=== PATIENT | female | born 1980 | race Caucasian/White ===

== ENCOUNTER 2023-02-24 13:57 | Outpatient (CLI) | payer MEDICAID ==
--- NOTE | 2023-02-24 14:38 | XRAY Report ---
PROCEDURE: Shoulder 3 View LT INDICATIONS: PAIN IN LEFT SHOULDER TECHNIQUE: 3 views of the shoulder were acquired. COMPARISON: None. FINDINGS: Bones: No fractures or dislocations. No suspicious bony lesions. Visualized ribs appear intact. Mild acromioclavicular narrowing. Soft tissues: No suspicious soft tissue calcifications. IMPRESSION: Mild acromioclavicular narrowing. Reviewed by: Bria Cabral MD on 02/24/2023 2:37 PM PDT Approved by: Bria Cabral MD on 02/24/2023 2:37 PM PDT Station ID: [id number]
== END 2023-02-24 13:58 | disposition home or self-care (01) ==
LOC: DI 13:57
PROVIDERS: ATTEND Registered Nurse
DX: M25.512 Pain in left shoulder (principal)

== ENCOUNTER 2023-03-14 13:43 | Outpatient (CLI) | payer MEDICAID ==
--- NOTE | 2023-03-14 16:04 | MRI Report ---
PROCEDURE: SHOULDER WO - LT INDICATIONS: LEFT SHOULDER SPRAIN TECHNIQUE: Noncontrast oblique coronal T2 fast spin echo with fat saturation, oblique sagittal T1 spin echo and T2 fast spin echo with fat saturation, axial T1 spin echo and T2 fast spin echo with fat saturation t hrough the shoulder. COMPARISON: Shoulder radiograph dated 02/24/2023. FINDINGS: Image quality: Excellent. Rotator cuff: Low-grade articular and bursal surface partial-thickness tear involving distal supraspi natus at its insertion on humeral head is seen extending to musculotendinous junction. Low-grade shazia cular surface partial-thickness tear involving distal infraspinatus is also seen. Distal subscapulari s tendon is intact. No full-thickness rotator cuff tendon rupture. No rotator cuff muscle atrophy on sagittal images. Bones and bursae: No bone marrow contusions or fractures. Nonspecific subcortical cystic changes are seen in posterior lateral humeral head. Mild acromioclavicular joint osteoarthritic changes are seen with joint space narrowing and small downward osteophyte formation depressing on musculotendinous ju nction of supraspinatus. The acromion demonstrates conventional anatomy, without an os acromiale. Sma ll amount of subacromial subdeltoid bursal fluid is present. Capsule and soft tissues: There is subtle signal abnormality and contour irregularity involving super ior anterior labrum at 12 to 1:00 position suggestive of subtle superior anterior labral tear. Subtle signal abnormality involving inferior labrum at 5 to 6:00 position is also seen. The long head of th e biceps tendon demonstrates normal location and morphology. The rotator interval appears normal, wi thout fibrosis. The coracohumeral ligament is normal in thickness. IMPRESSION: 1. Low-grade articular and bursal surface partial-thickness tear involving distal supraspinatus exten ding to musculotendinous junction. Low-grade articular surface partial-thickness tear involving dista l infraspinatus. Distal subscapularis tendon is intact. No full-thickness rotator cuff tendon rupture . 2. Very mild acromioclavicular joint osteoarthritis. No marrow edema. No fracture or dislocation. Sma ll amount of subacromial subdeltoid bursal fluid. 3. Suggestion of subtle superior anterior labral tear at 12 to 1:00 position and anterior inferior la bral tear at 5 to 6:00 position. Reviewed by: Bhanu Carbajal MD on 03/14/2023 4:02 PM PDT Approved by: Bhanu Carbajal MD on 03/14/2023 4:02 PM PDT Station ID: [id number]
== END 2023-03-14 13:44 | disposition home or self-care (01) ==
LOC: DI 13:43
PROVIDERS: ATTEND Family Medicine
DX: M75.112 Incomplete rotator cuff tear or rupture of left shoulder, not specified as traumatic (principal); M19.012 Primary osteoarthritis, left shoulder

== ENCOUNTER 2023-03-26 08:00 | Outpatient (CLI) | payer OTHER, MEDICAID ==
--- NOTE | 2023-03-26 11:26 | XRAY Report ---
PROCEDURE: Shoulder 2 View LT INDICATIONS: LEFT SHOULDER PAIN TECHNIQUE: 2 views of the shoulder were acquired. COMPARISON: MRI 03/14/2023 FINDINGS: Bones: No displaced fracture. No dislocation. Mild acromioclavicular joint space narrowing. Soft tissues: No suspicious calcifications. IMPRESSION: Mild acromioclavicular joint space narrowing. No acute fracture or dislocation. Soft tissue findings were better assessed on recent prior MRI. Reviewed by: Fer Barnett MD on 03/26/2023 11:24 AM PDT Approved by: Fer Barnett MD on 03/26/2023 11:24 AM PDT Station ID: [id number]
== END 2023-03-26 23:59 | disposition home or self-care (01) ==
LOC: DI.WOS 08:00
PROVIDERS: ATTEND Orthopaedic Surgery
DX: S43.492D Other sprain of left shoulder joint, subsequent encounter (principal); M19.012 Primary osteoarthritis, left shoulder

== ENCOUNTER 2023-06-21 13:00 | Outpatient (CLI) | payer MEDICAID | END 2023-06-21 13:15 | disposition home or self-care (01) | LOC: LAB.N 13:00 | PROVIDERS: ATTEND Registered Nurse | DX: R39.15 Urgency of urination (principal); R10.9 Unspecified abdominal pain; R30.0 Dysuria | CPT/HCPCS: 87086 ==

== ENCOUNTER 2023-08-06 08:06 | Outpatient (CLI) | payer MEDICAID ==
[2023-08-06 12:22] LABS: BASOPHILS % (AUTO) 0.3 %; EOSINOPHILS # (AUTO) 0.1 10^3/uL (0.0-0.7); HCT - HEMATOCRIT 39.9 % (37.0-47.0); HGB - HEMOGLOBIN 13.2 g/dL (12.0-16.0); LYMPHOCYTES # (AUTO) 2.1 10^3/uL (1.5-3.5); LYMPHOCYTES % (AUTO) 35.3 %; MEAN CORPUSCULAR HEMOGLOBIN 28.7 pg (27.0-31.0); MEAN CORPUSCULAR HGB CONC 33.1 g/dL (32.0-36.0); MEAN CORPUSCULAR VOLUME 86.7 fL (81.0-99.0); MEAN PLATELET VOLUME 10.4 fL (7.9-10.8); MONOCYTES # (AUTO) 0.3 10^3/uL (0.0-1.0); MONOCYTES % (AUTO) 5.5 %; NEUTROPHILS # (AUTO) 3.4 10^3/uL (1.5-6.6); NEUTROPHILS % (AUTO) 56.7 %; PLT - PLATELET COUNT 356 10^3/uL (130-450); RED CELL DISTRIBUTION WIDTH 11.8 % (12.0-15.0)
[2023-08-06 13:27] LABS: ALBUMIN 3.9 g/dL (3.2-5.5); ALBUMIN/GLOBULIN RATIO 1.7 (1.0-2.2); ALKALINE PHOSPHATASE 41 IU/L (42-121); ALT ALANINE AMINOTRANSFERASE 20 IU/L (10-60); AST ASPARTATE AMINOTRANSFERASE 13 IU/L (10-42); BILIRUBIN,TOTAL 0.4 mg/dL (0.2-1.0); BUN - BLOOD UREA NITROGEN 9 mg/dL (6-20); CALCIUM 8.9 mg/dL (8.5-10.3); CARBON DIOXIDE - CO2 27 mmol/L (21-32); CHLORIDE 104 mmol/L (101-111); CHOLESTEROL 147 mg/dL; CREATININE 0.6 mg/dL (0.6-1.3); GFR - MDRD 110 (>89); GLUCOSE 175 mg/dL (74-104); HDL CHOLESTEROL 49 mg/dL; LDL CHOLESTEROL,CALCULATED 63 mg/dL; LDL/HDL RATIO 1.3 (<4.4); POTASSIUM 3.8 mmol/L (3.5-4.5); SODIUM 137 mmol/L (135-145); TOTAL PROTEIN 6.2 g/dL (6.4-8.9); TRIGLYCERIDES 176 mg/dL (48-352); VLDL CHOLESTEROL 35 mg/dL
[2023-08-06 13:35] LABS: ESTIMATED AVERAGE GLUCOSE 163 mg/dL (70-100); HEMOGLOBIN A1c% 7.3 % (4.27-6.07)
[2023-08-06 13:39] LABS: THYROID STIMULATING HORMONE 2.29 uIU/mL (0.34-5.60)
[2023-08-06 13:42] LABS: CREATININE,URINE 174.1 mg/dL; MICROALBUM/CREATININE RATIO,UR 11.5 ug/mg (<30.0)
== END 2023-08-06 08:07 | disposition home or self-care (01) ==
LOC: LAB.N 08:06
PROVIDERS: ATTEND Physician Assistant
DX: E11.319 Type 2 diabetes mellitus with unspecified diabetic retinopathy without macular edema (principal); E03.9 Hypothyroidism, unspecified
CPT/HCPCS: 36415; 80050; 80061; 82043; 82570; 83036; 83721; 84439

== ENCOUNTER 2024-02-08 07:27 | Outpatient (CLI) | payer MEDICAID ==
[2024-02-08 12:34] LABS: ESTIMATED AVERAGE GLUCOSE 174 mg/dL (70-100); HEMOGLOBIN A1c% 7.7 % (4.27-6.07)
[2024-02-08 12:54] LABS: CALCIUM 9.2 mg/dL (8.5-10.3); CREATININE 0.6 mg/dL (0.6-1.3); POTASSIUM 4.1 mmol/L (3.5-4.5)
== END 2024-02-08 07:28 | disposition home or self-care (01) ==
LOC: LAB.N 07:27
PROVIDERS: ATTEND Physician Assistant
DX: E11.319 Type 2 diabetes mellitus with unspecified diabetic retinopathy without macular edema (principal)
CPT/HCPCS: 36415; 80048; 83036

== ENCOUNTER 2024-02-13 07:45 | Outpatient (CLI) | payer MEDICAID ==
--- NOTE | 2024-02-14 09:33 | Ultrasound Report ---
LIMITED ULTRASOUND OF RIGHT BREAST: 02/13/2024 CLINICAL: Focal right breast pain. Comparison is made to exam dated: 02/13/2024 mammogram - [facility]. Continuous wave Doppler ultrasound of the right breast retroareolar was performed on the area of inte rest. IMPRESSION: NEGATIVE There is no mammographic or sonographic abnormality seen in the right breast to correspond with the a julio of clinical concern, however, in the setting of nipple skin changes, surgical consultation is rec ommended as Paget's disease of the breast cannot be excluded by imaging. This exam was interpreted at Station ID: [id number]. Electronically Signed By: Lillian Mathias M.D. lk/:02/13/2024 09:46:04 Ultrasound BI-RADS: 1 Negative BI-RADS CATEGORY: (1) - 1 Unspecified - other [id number] Immediate follow-up LATERALITY: (B)
--- NOTE | 2024-02-14 09:33 | Mammography Report ---
BILATERAL DIGITAL DIAGNOSTIC MAMMOGRAM 3D/2D WITH EXAGGERATED CC LATEROMEDIAL SPOT COMPRESSION: 2023 CLINICAL: Baseline exam. Focal right breast pain. No prior exams were available for comparison. There are scattered areas of fibroglandular density in both breasts (category b / 25%-50% glandular t issue). No significant masses, calcifications, or other findings are seen in either breast. IMPRESSION: INCOMPLETE: NEEDS ADDITIONAL IMAGING EVALUATION There is no mammographic abnormality seen in the right breast to correspond with the area of clinical concern, however, targeted ultrasound of the right breast is recommended and will be performed imme diately following this exam. Based on the Tyrer Cuzick model (a risk assessment model) the patient's lifetime risk is 8.7% and her 10 year risk is 1.2%. According to the ACR, ACS, and NCCN guidelines, an annual breast MRI exam columb[place] g with mammogram is recommended if the patient's lifetime risk is 20% or greater. This exam was interpreted at Station ID: [id number]. NOTE: For mammograms, a report in lay terms will be sent to the patient. Approximately 15% of breast malignancies will not be visualized mammographically. In the management of a palpable breast mass, a negative mammogram must not discourage biopsy of a clinically suspicious lesion. Electronically Signed By: Lillian Mathias M.D. lk/:02/13/2024 10:07:40 ACR BI-RADS Category 0: Incomplete 3340F PARENCHYMAL PATTERN: (A) - The breast(s) demonstrate(s) scattered fibroglandular densities. BI-RADS CATEGORY: (0) - 0 Ultrasound [id number] Immediate follow-up LATERALITY: (B)
== END 2024-02-13 07:46 | disposition home or self-care (01) ==
LOC: DI 07:45
PROVIDERS: ATTEND Physician Assistant
DX: N64.4 Mastodynia (principal); N64.9 Disorder of breast, unspecified; R92.323 Mammographic fibroglandular density, bilateral breasts

== ENCOUNTER 2024-03-10 18:12 | Emergency (ER) | payer MEDICAID ==
--- NOTE | 2024-03-10 18:20 | ED Physician Documentation ---
PD HPI FOCAL NEURO - Stated complaint Stated Complaint: RT FACIAL DROOP, LEFT SIDE WEAKNESS, APHASIA - Chief complaint Chief Complaint: Neuro - History obtained from History obtained from: Patient, EMS - Additional information Additional information: 43-year-old female, history of diabetes and migraines, states that she had a stroke 2 years ago in [place]. She states that she was told it was due to Imitrex. She developed a headache today around 2 PM. At around 1710, she developed difficulty speaking, left-sided weakness and right-sided facial droop. She went to the walk-in clinic in [place], no nonnormal was called and she was brought here. Arrived around 1814. She is able to speak upon arrival here, is able to move her left side and has a decreasing right facial droop upon arriv al. Review of Systems Constitutional: denies: Fever, Chills Respiratory: denies: Cough : denies: Now EGA Skin: denies: Rash PD PAST MEDICAL HISTORY - Past Medical History Past Medical History: Yes Neuro: CVA, Migraines - Present Medications Home Medications: Ambulatory Orders Medication Instructions Recorded Confirmed Acyclovir 400 mg PO DAILY 03/10/24 03/10/24 Atorvastatin Calcium 40 mg PO DAILY 03/10/24 03/10/24 Brimonidine 0.15% Ophth Drops 1 drops OPTH DAILY 03/10/24 03/10/24 [Alphagan P 0.15% Ophth Drops] Budesonide/Formoterol Fumarate 2 puffs INH BID 03/10/24 03/10/24 [Symbicort 160-4.5 Mcg Inhaler] Gabapentin [Neurontin] 300 mg PO TID 03/10/24 03/10/24 Insulin Glargine,Hum.rec.anlog 16 unit SUBQ DAILY 03/10/24 03/10/24 [Basaglar Kwikpen U-100] Ketorolac [Toradol] 10 mg PO Q6H PRN #20 tablet 03/10/24 LORazepam [Ativan] 0.5 mg PO Q6H 03/10/24 03/10/24 Levothyroxine [Synthroid] 100 mcg PO QDAC 03/10/24 03/10/24 Liraglutide [Victoza 2-Ron] 1.2 mg SQ DAILY 03/10/24 03/10/24 Lisinopril [Zestril] 40 mg PO DAILY 03/10/24 03/10/24 Metoclopramide [Reglan] 10 mg PO Q6H PRN #20 tablet 03/10/24 Metoprolol Tartrate [Lopressor] 25 mg PO BID 03/10/24 03/10/24 Ondansetron Odt [Zofran Odt] 4 mg TL Q6H PRN 03/10/24 03/10/24 Prazosin [Minipress] 5 mg PO QPM 03/10/24 03/10/24 Trazodone HCl 100 mg PO DAILY PM 03/10/24 03/10/24 hydroCHLOROthiazide [Hydrodiuril] 12.5 mg PO DAILY 03/10/24 03/10/24 lamoTRIgine [Lamictal] 150 mg PO BID 03/10/24 03/10/24 - Allergies Allergies/Adverse Reactions: Allergies Allergy/AdvReac Type Severity Reaction Status Date / Time adhesive tape Allergy Anxiety Verified 03/10/24 18:47 hydrocodone Allergy Hives Verified 03/10/24 18:45 NSAIDS (Non-Steroidal Allergy Anxiety Verified 03/10/24 18:47 Anti-Inflamma oxycodone Allergy Anaphylaxis Verified 03/10/24 18:45 sumatriptan Allergy Anxiety Verified 03/10/24 18:46 topiramate [From Topamax] Allergy Hives Verified 03/10/24 18:46 - Living Situation Living Situation: reports: With family Living Arrangement: reports: At home - Family History Family history: reports: Non contributory PD ED PE NORMAL - Vitals Vital signs reviewed: Yes - General General: Alert and oriented X 3, No acute distress, Well developed/nourished - HEENT HEENT: PERRL, Ears normal, Moist mucous membranes, Pharynx benign - Neck Neck: Supple, no meningeal sign - Cardiac Cardiac: RRR, Strong equal pulses - Respiratory Respiratory: No respiratory distress, Clear bilaterally - Abdomen Abdomen: Soft, Non tender, Non distended - Derm Derm: Warm and dry - Extremities Extremities: No edema, No calf tenderness / cord - Neuro Neuro: Alert and oriented X 3, 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 (patient is blind at baseline), No sensory deficit, Normal speech, Other (mild R facial droop and L sided weakness of arm and leg.) Eye Opening: Spontaneous Motor: Obeys Commands Verbal: Oriented GCS Score: 15 - Psych Psych: Normal mood, Normal affect NIHSS - Time Time: 18:15 - Level of Consciousness Level of consciousness: (0) Alert, Keenly responsive LOC Questions: (0) Answers both Q's correct LOC Commands: (0) Performs both correctly - Gaze Best Gaze: (0) Normal - Visual Visual: (0) No loss - Facial Palsy Facial Palsy: (1) Minor paralysis - Motor Arms (both separate) Motor Arm (right): (0) No drift Motor Arm (left): (0) No drift - Motor Legs (both separate) Motor Leg (right): (0) No drift Motor Leg (left): (1) Drift - Limb Ataxia Limb Ataxia: (0) Absent - Sensory Sensory: (0) Normal - Best Language Best Language: (1) [id number] - Dysarthria Dysarthria: (0) Normal - Extinction and Inattention (formally neg Extinction and inattention: (0) No abnormality - Total Score/Results Total Score/Result: 3 Results - Vitals Vitals: Vital Signs - 24 hr 03/10/24 03/10/24 03/10/24 18:35 18:44 19:44 Temperature 36.6 C 36.8 C Heart Rate 54 L 55 L 65 Respiratory 14 18 13 Rate Blood Pressure 169/107 H 157/84 H 138/73 H O2 Saturation 96 93 96 03/10/24 20:00 Temperature 36.6 C Heart Rate 66 Respiratory 12 Rate Blood Pressure 138/72 H O2 Saturation 96 Oxygen O2 Source Room air - EKG (time done) 1841 EKG releavant findings:: EKG personally interpreted by author of this note. Relevant findings are: Rate: Rate (enter#) (54) Rhythm: NSR [place]: Normal Intervals: Normal UT QRS: Normal Ischemia: Normal ST segments - Labs Labs: Laboratory Tests 03/10/24 03/10/24 03/10/24 18:15 18:15 18:15 WBC 7.7 RBC 4.66 Hgb 13.1 Hct 39.5 MCV 84.8 MCH 28.1 MCHC 33.2 RDW 12.1 Plt Count 345 MPV 9.9 Neut # (Auto) 4.4 Lymph # (Auto) 2.8 [place] # (Auto) 0.5 Eos # (Auto) 0.1 Baso # (Auto) 0.0 Absolute Nucleated RBC 0.00 Nucleated RBC % 0.0 PT 11.4 INR 1.1 APTT 27.6 Sodium 138 Potassium 3.7 Chloride 104 Carbon Dioxide 25 Anion Gap 9.0 BUN 9 Creatinine 0.6 Estimated GFR (MDRD) 110 Glucose 134 H Calcium 9.2 Total Bilirubin 0.2 AST 19 ALT 24 Alkaline Phosphatase 41 L Total Protein 6.4 Albumin 3.8 Globulin 2.6 Albumin/Globulin Ratio 1.5 Lipase 38 - Rads (name of study) Head CT Relevant Findings:: Final report received, See rad report CT angiogram head and neck Relevant Findings:: Final report received, See rad report PD Medical Decision Making - ED course Complexity details: reviewed results, re-evaluated patient, considered differential, d/w patient ED course: No acute findings on head CT or CT angiogram of the head and neck. Her symptoms are consistent with a complex migraine. She states she is usually treated with Toradol, Reglan and Benadryl for her headache. She was given this headache cocktail and her headache resolved. On her headache resolved all of her neurological symptoms resolved as well. Suspect that this is a complex migraine rather than a true ischemic stroke. We will have her follow-up with her doctor for further care. Patient counseled regarding signs and symptoms for which I believe and urgent re-evaluation would be necessary. Patient with good understanding of and agreement to plan and is comfortable going home at this time This document was made in part using voice recognition software. While efforts are made to proofread this document, sound alike and grammatical errors may occur. Departure - Departure Disposition: 01 Home, Self Care Clinical Impression: Migraine, hemiplegic Qualifiers: Status migrainosus presence: without status migrainosus Intractability: not intractable Qualified Code(s): G43.409 - Hemiplegic migraine, not intractable, without status migrainosus Condition: Good Instructions: ED Headache Migraine Follow-Up: Nila Navas PA-C [Primary Care Provider] - Within 1 week Prescriptions: Metoclopramide [Reglan] 10 mg PO Q6H PRN #20 tablet PRN Reason: Nausea / Vomiting Ketorolac [Toradol] 10 mg PO Q6H PRN #20 tablet PRN Reason: back pain Comments: Your prescriptions were sent to [facility] in [place]. You appear to have had a complex migraine today. The treatment of your headache has resolved your other neurological symptoms. Please follow-up with your doctor for further care and return if you worsen. Forms: PCP List Discharge Date/Time: 03/10/24 20:12
[2024-03-10 18:26] LABS: BASOPHILS % (AUTO) 0.3 %; EOSINOPHILS # (AUTO) 0.1 10^3/uL (0.0-0.7); EOSINOPHILS % (AUTO) 1.3 %; HCT - HEMATOCRIT 39.5 % (37.0-47.0); HGB - HEMOGLOBIN 13.1 g/dL (12.0-16.0); LYMPHOCYTES # (AUTO) 2.8 10^3/uL (1.5-3.5); LYMPHOCYTES % (AUTO) 35.8 %; MEAN CORPUSCULAR HEMOGLOBIN 28.1 pg (27.0-31.0); MEAN CORPUSCULAR HGB CONC 33.2 g/dL (32.0-36.0); MEAN CORPUSCULAR VOLUME 84.8 fL (81.0-99.0); MEAN PLATELET VOLUME 9.9 fL (7.9-10.8); MONOCYTES # (AUTO) 0.5 10^3/uL (0.0-1.0); MONOCYTES % (AUTO) 6.1 %; NEUTROPHILS # (AUTO) 4.4 10^3/uL (1.5-6.6); NEUTROPHILS % (AUTO) 56.4 %; PLT - PLATELET COUNT 345 10^3/uL (130-450); RED BLOOD COUNT 4.66 10^6/uL (4.20-5.40); RED CELL DISTRIBUTION WIDTH 12.1 % (12.0-15.0); WHITE BLOOD COUNT 7.7 x10^3/uL (4.8-10.8)
[2024-03-10 18:33] LABS: PARTIAL THROMBOPLASTIN TIME 27.6 secs (24.9-33.3)
[2024-03-10 18:34] LABS: ALBUMIN 3.8 g/dL (3.2-5.5); ALBUMIN/GLOBULIN RATIO 1.5 (1.0-2.2); BILIRUBIN,TOTAL 0.2 mg/dL (0.2-1.0); CALCIUM 9.2 mg/dL (8.5-10.3); CREATININE 0.6 mg/dL (0.6-1.3); POTASSIUM 3.7 mmol/L (3.5-4.5); TOTAL PROTEIN 6.4 g/dL (6.4-8.9)
[2024-03-10 18:37] LABS: INR 1.1 (0.8-1.2); PT - PROTHROMBIN TIME 11.4 secs (9.9-12.6)
--- NOTE | 2024-03-10 18:50 | CT Report ---
PROCEDURE: Head W/O Stroke Protocol INDICATIONS: L sided weakness, aphasia TECHNIQUE: Noncontrast 4.5 mm thick angled axial sections acquired from the foramen magnum to the vertex, with c oronal reformats. For radiation dose reduction, the following was used: automated exposure control, adjustment of mA and/or kV according to patient size. COMPARISON: CTA head and neck 03/10/2024.. FINDINGS: Image quality: Excellent. CSF spaces: Basal cisterns are patent. No extra-axial fluid collections. Ventricles are normal in size and shape. Brain: No midline shift. No intracranial masses or hemorrhage. Mark-white matter interface is norm al. Skull and face: Calvarium and visualized facial bones are intact, without suspicious lesions. Sinuses: Visualized sinuses and mastoids are clear. IMPRESSION: 1. No acute intracranial process. This study fulfills neurological imaging criteria for inclusion or exclusion of acute stroke therapie s based on available published neurological imaging guidelines. Reviewed by: Bria Cabral MD on 03/10/2024 6:48 PM PDT Approved by: Bria Cabral MD on 03/10/2024 6:48 PM PDT Station ID: [id number]
--- NOTE | 2024-03-10 18:53 | CT Report ---
PROCEDURE: Angio Head/Neck INDICATIONS: L sided weakness, aphasia TECHNIQUE: After the administration of intravenous contrast, 1 mm thick sections acquired from the aortic arch t hrough the [place]. 3-dimensional isunbpv-acvdarwle-xcmelkqdnc (MIP) and/or volume renderin g reformats were acquired of the central intracranial vasculature and neck separately. For radiation dose reduction, the following was used: automated exposure control, adjustment of mA and/or kV acco rding to patient size. CONTRAST: 80ml [id number] COMPARISON: CT head 03/10/2024. FINDINGS: Image quality: Diagnostic. HEAD CT: Please see separately dictated CT head report of 03/10/[address] ANGIOGRAPHY: Anterior circulation: Intracranial internal carotid arteries are normal in size and flow. The flow within the paired anterior cerebral arteries is normal and symmetric. The flow within the middle cer ebral arteries is normal and symmetric. The anterior communicating artery is seen. No aneurysms are seen. Posterior circulation: Visualized portions of the vertebral arteries demonstrate normal caliber, and join to form a normal appearing basilar artery. Flow within the posterior cerebral arteries is norm al and symmetric. No aneurysms are seen. NECK CT ANGIOGRAPHY: Carotid system: The great vessels demonstrate a conventional anatomy as they arise from the aortic a rch. The origins of the common carotid arteries appear patent. The common carotid arteries demonstr ate normal caliber and courses. The bifurcation regions are both widely patent. The internal caroti d arteries demonstrate normal calibers and courses. Posterior circulation: Vertebral arteries are codominant. The origins of the vertebral arteries both appear widely patent. The more superior extracranial portions of both vertebral arteries also demon strate normal courses and calibers. They join to form a normal appearing basilar artery. Soft tissues: Visualized neck soft tissues demonstrate no suspicious abnormalities. Bones: No suspicious bony lesions. Visualized cervical spine appears normally aligned. IMPRESSION: No significant intracranial arterial abnormality is seen. No significant abnormality is seen within the arteries of the neck. The estimate of stenosis included in the report of the imaging study was calculated using the NASCET method Reviewed by: Bria Cabral MD on 03/10/2024 6:51 PM PDT Approved by: Bria Cabral MD on 03/10/2024 6:51 PM PDT Station ID: [id number]
[2024-03-10] MEDS ORDERED: iohexoL-300 100 ML VIAL ONE (19:03)
[2024-03-10] MEDS: KETOROLAC 30 MG/ML VIAL IVP STA (19:32)
[2024-03-10] MEDS: diphenhydrAMINE INJ 50 MG/ML VIAL IVP STA (19:33)
[2024-03-10] MEDS: METOCLOPRAMIDE 10 MG/2 ML VIAL IVP STA (19:33)
[2024-03-10] MEDS: iohexoL-300 100 ML VIAL IVP ONE (19:59)
[2024-03-10 20:09] VITALS: BP 138/72; O2SAT 96
== END 2024-03-10 20:12 | disposition home or self-care (01) ==
LOC: EDUNIT# → ED 18:12
DX: G43.409 Hemiplegic migraine, not intractable, without status migrainosus (principal); Z86.73 Personal history of transient ischemic attack (TIA), and cerebral infarction without residual deficits; Z79.899 Other long term (current) drug therapy
CPT/HCPCS: 36415; 70450; 70496; 70498; 80053; 83690; 85025; 85610; 85730; 93005; 96374; 96375; 99284; J1200; J2765; Q9967

== ENCOUNTER 2024-05-15 07:27 | Outpatient (CLI) | payer MEDICAID ==
[2024-05-15 12:07] LABS: BASOPHILS % (AUTO) 0.4 %; EOSINOPHILS # (AUTO) 0.1 10^3/uL (0.0-0.7); EOSINOPHILS % (AUTO) 1.6 %; HCT - HEMATOCRIT 40.2 % (37.0-47.0); HGB - HEMOGLOBIN 13.2 g/dL (12.0-16.0); LYMPHOCYTES # (AUTO) 2.6 10^3/uL (1.5-3.5); LYMPHOCYTES % (AUTO) 31.1 %; MEAN CORPUSCULAR HEMOGLOBIN 28.8 pg (27.0-31.0); MEAN CORPUSCULAR HGB CONC 32.8 g/dL (32.0-36.0); MEAN CORPUSCULAR VOLUME 87.8 fL (81.0-99.0); MEAN PLATELET VOLUME 10.5 fL (7.9-10.8); MONOCYTES # (AUTO) 0.6 10^3/uL (0.0-1.0); MONOCYTES % (AUTO) 6.6 %; NEUTROPHILS % (AUTO) 60.1 %; PLT - PLATELET COUNT 326 10^3/uL (130-450); RED BLOOD COUNT 4.58 10^6/uL (4.20-5.40); RED CELL DISTRIBUTION WIDTH 12.3 % (12.0-15.0); WHITE BLOOD COUNT 8.3 x10^3/uL (4.8-10.8)
[2024-05-15 12:23] LABS: ALBUMIN 4.1 g/dL (3.2-5.5); ALBUMIN/GLOBULIN RATIO 1.5 (1.0-2.2); BILIRUBIN,TOTAL 0.4 mg/dL (0.2-1.0); CALCIUM 9.4 mg/dL (8.5-10.3); CREATININE 0.6 mg/dL (0.6-1.3); POTASSIUM 4.1 mmol/L (3.5-4.5); TOTAL PROTEIN 6.8 g/dL (6.4-8.9)
[2024-05-15 12:55] LABS: ESTIMATED AVERAGE GLUCOSE 148 mg/dL (70-100); HEMOGLOBIN A1c% 6.8 % (4.27-6.07)
== END 2024-05-15 07:28 | disposition home or self-care (01) ==
LOC: LAB.N 07:27
PROVIDERS: ATTEND Physician Assistant
DX: E11.319 Type 2 diabetes mellitus with unspecified diabetic retinopathy without macular edema (principal)
CPT/HCPCS: 36415; 80053; 83036; 85025